=== PATIENT | male | born 1970 ===

== ENCOUNTER 2016-09-16 14:05 | Outpatient (RCR) | payer BC ==
[~2016-09-16] VITALS: Ht 182.9 cm; Wt 123.4 kg
== END 2016-10-08 | disposition home or self-care (01) ==
LOC: WCC 14:05
DX: L97.512 Non-pressure chronic ulcer of other part of right foot with fat layer exposed (principal); L97.812 Non-pressure chronic ulcer of other part of right lower leg with fat layer exposed; L97.312 Non-pressure chronic ulcer of right ankle with fat layer exposed; E11.622 Type 2 diabetes mellitus with other skin ulcer
CPT/HCPCS: 11042; 11045

== ENCOUNTER 2016-10-14 14:00 | Outpatient (RCR) | payer BC | END 2016-11-05 | disposition home or self-care (01) | LOC: WCC 14:00 | DX: L97.512 Non-pressure chronic ulcer of other part of right foot with fat layer exposed (principal); L97.312 Non-pressure chronic ulcer of right ankle with fat layer exposed; E11.622 Type 2 diabetes mellitus with other skin ulcer; L97.812 Non-pressure chronic ulcer of other part of right lower leg with fat layer exposed | CPT/HCPCS: 11042; 15002; 15271; Q4106; Q4101 ==

== ENCOUNTER 2016-11-11 08:45 | Outpatient (RCR) | payer BC | END 2016-12-06 | disposition home or self-care (01) | LOC: WCC 08:45 | DX: L97.512 Non-pressure chronic ulcer of other part of right foot with fat layer exposed (principal); L97.812 Non-pressure chronic ulcer of other part of right lower leg with fat layer exposed; L97.312 Non-pressure chronic ulcer of right ankle with fat layer exposed; E11.622 Type 2 diabetes mellitus with other skin ulcer; E11.40 Type 2 diabetes mellitus with diabetic neuropathy, unspecified | CPT/HCPCS: 15002; G0463 ==